=== PATIENT | female | born 1945 | race Hispanic/Latino ===

== ENCOUNTER → 2022-06-25 | Outpatient (CLI) | payer OTHER ==
[2022-06-25 12:35] LABS: ALBUMIN 3.7 g/dL (3.5-5.0); CREATININE 0.9 mg/dL (0.5-1.5); TOTAL PROTEIN, SERUM 7.2 g/dL (6.0-8.3)
== END | disposition home or self-care (01) ==
LOC: LAB 08:31
PROVIDERS: ATTEND Student in an Organized Health Care Education/Training Program
DX: I10 Essential (primary) hypertension (principal)
CPT/HCPCS: 36415; 80053

== ENCOUNTER → 2022-06-27 | Outpatient (CLI) | payer OTHER | END | disposition home or self-care (01) | LOC: RAH 13:04 | PROVIDERS: ATTEND Student in an Organized Health Care Education/Training Program | DX: I51.7 Cardiomegaly (principal); R07.9 Chest pain, unspecified | CPT/HCPCS: 93306 ==

== ENCOUNTER → 2022-08-21 | Outpatient (CLI) | payer OTHER ==
[2022-08-21 13:47] LABS: CREATININE 0.8 mg/dL (0.5-1.5); POTASSIUM 3.9 mmol/L (3.5-5.1)
== END | disposition home or self-care (01) ==
LOC: LAB 08:34
PROVIDERS: ATTEND Student in an Organized Health Care Education/Training Program
DX: I10 Essential (primary) hypertension (principal); R07.9 Chest pain, unspecified
CPT/HCPCS: 36415; 80048

== ENCOUNTER → 2022-09-16 | Outpatient (CLI) | payer OTHER ==
[~2022-09-16] MED LIST: IOHEXOL-350 50ML VIAL IV ONE; METOPROLOL TARTRATE 1 MG/ML 5ML VIAL IV ONE
== END | disposition home or self-care (01) ==
LOC: RAH 07:23
PROVIDERS: ATTEND Student in an Organized Health Care Education/Training Program
DX: I10 Essential (primary) hypertension (principal); R07.9 Chest pain, unspecified
CPT/HCPCS: 75574; J3490 ×2; Q9967

== ENCOUNTER → 2023-06-24 | Outpatient (CLI) | payer OTHER | END | disposition home or self-care (01) | LOC: RAH 10:20 | PROVIDERS: ATTEND Internal Medicine | DX: R10.2 Pelvic and perineal pain (principal); Z90.710 Acquired absence of both cervix and uterus | CPT/HCPCS: 76856 ==

== ENCOUNTER → 2023-09-02 | Outpatient (CLI) | payer OTHER | END | disposition home or self-care (01) | LOC: SHCH 08:12 | PROVIDERS: ATTEND Student in an Organized Health Care Education/Training Program | DX: R07.9 Chest pain, unspecified (principal) | CPT/HCPCS: 93306 ==

== ENCOUNTER → 2025-05-25 | Outpatient (CLI) | payer OTHER ==
--- NOTE | 2025-05-30 11:14 | HMCIMG ---
EXAM: CT Abdomen and Pelvis without IV contrast CLINICAL HISTORY: General abdominal pain TECHNIQUE: Axial computed tomography images of the abdomen and pelvis without intravenous contrast. CONTRAST: No IV contrast. COMPARISON: None provided. FINDINGS: LUNG BASES: There is a 1.1 cm subpleural nodule in the medial basal segment of the left lower lobe (axial image 5/94). No pleural effusions are seen. LIVER: Unremarkable. GALLBLADDER AND BILE DUCTS: The gallbladder demonstrates a triple radiopaque gallstones without wall thickening or pericholecystic inflammation. No biliary ductal dilatation is evident. PANCREAS: Unremarkable. SPLEEN: Unremarkable. 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 KIDNEYS, URETERS, AND BLADDER: The kidneys demonstrate numerous bilateral parapelvic cysts, evaluation of which is limited on this non-intravenous contrast study. There is no hydroureter. No urinary calculi are seen. STOMACH AND BOWEL: There is a moderate hiatal hernia. No evidence of bowel obstruction. No evidence suggesting enteritis or colitis. There are multiple colonic diverticuli without acute diverticulitis. The distal colon is underdistended. APPENDIX: Unremarkable. PERITONEUM: No free fluid or free air. LYMPH NODES: No lymphadenopathy is evident. REPRODUCTIVE: Surgically absent. VASCULATURE: The aorta demonstrates atheromatous calcifications without aneurysm. BONES: No aggressive appearing osseous lesion. No acute osseous pathology evident. There is a transitional vertebra at S1 with a rudimentary disc at S1/2. SOFT TISSUE: There is a small fat containing umbilical hernia. Post-operative changes are noted in the lower ventral abdominal wall. IMPRESSION: No significant acute abnormality. Moderate hiatal hernia. Colonic diverticulosis without acute diverticulitis. Incidental cholelithiasis. Numerous parapelvic cysts of the kidneys. No acute process. 1.1 cm nodule in the medial basal segment of left lower lobe. A dedicated chest CT is recommended. /[place]
== END | disposition home or self-care (01) ==
LOC: RAH 10:33
PROVIDERS: ATTEND Internal Medicine
DX: K57.30 Diverticulosis of large intestine without perforation or abscess without bleeding (principal); K44.9 Diaphragmatic hernia without obstruction or gangrene; K80.20 Calculus of gallbladder without cholecystitis without obstruction; R10.84 Generalized abdominal pain; R10.20 Pelvic and perineal pain unspecified side; N28.1 Cyst of kidney, acquired; R91.1 Solitary pulmonary nodule; K42.9 Umbilical hernia without obstruction or gangrene
CPT/HCPCS: 74176

== ENCOUNTER → 2025-06-21 | Outpatient (CLI) | payer OTHER ==
[~2025-06-21] MED LIST changes: -METOPROLOL TARTRATE 1 MG/ML 5ML VIAL IV ONE
--- NOTE | 2025-06-23 13:15 | HMCIMG ---
EXAM: CT examination of the chest with intravenous contrast. CLINICAL HISTORY: Solitary pulmonary nodule. TECHNIQUE: Thin collimated axial CT images of the chest were obtained with sagittal and coronal reformatted images also submitted. CT scan is done according to ALARA (As Low as Reasonably Achievable). CONTRAST USED: 50 mL. Details not specified. COMPARISON: None provided. FINDINGS: Minimal bilateral posterior pleural thickening. Linear fibrotic band in bilateral lower lobes. Linear subsegmental atelectasis in the inferior lingular segment and anterior basal segment of left lower lobe. A lobulated 1.2 x 1.1 cm lesion from the medial aspect of the posterior basal segment of left lower lobe. No other lung nodules are identified. No pleural effusions. No pericardial effusion. Minimal pericardial thickening. The heart size is within normal limits. Scattered coronary artery calcifications. 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 No axillary, supraclavicular, or mediastinal lymphadenopathy. Benign-appearing calcification in the left breast superomedial aspect. No focal thyroid abnormality. Moderate hiatus hernia. Mild hepatomegaly with fatty infiltration of liver. The gallbladder demonstrates a few large calculi in the gallbladder body. A right renal parapelvic cyst is identified. Hyperplasia of the bilateral adrenal glands is more prominent on the left than on the right. No acute or suspicious osseous abnormality. IMPRESSION: Minimal bilateral posterior pleural thickening. Linear fibrotic band in bilateral lower lobes. Linear subsegmental atelectasis in the inferior lingular segment and anterior basal segment of left lower lobe. Lobulated 1.2 x 1.1 cm lesion from the medial aspect of the posterior basal segment of left lower lobe. No other lung nodules are identified. LUNG RADS 4B: Suggest a short-term follow-up after 3 months or a PET scan correlation. Minimal anterior pericardial thickening. No pericardial effusion. Scattered coronary artery calcifications. 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 Moderate hiatus hernia. Fatty infiltration of liver. Cholelithiasis without evidence of cholecystitis. Hyperplasia of the bilateral adrenal glands is more prominent on the left than on the right. /[place]
== END | disposition home or self-care (01) ==
LOC: RAH 13:34
PROVIDERS: ATTEND Internal Medicine
DX: J98.11 Atelectasis (principal); I25.10 Atherosclerotic heart disease of native coronary artery without angina pectoris; I70.0 Atherosclerosis of aorta; K44.9 Diaphragmatic hernia without obstruction or gangrene; R91.1 Solitary pulmonary nodule; K80.20 Calculus of gallbladder without cholecystitis without obstruction; K76.0 Fatty (change of) liver, not elsewhere classified; N28.1 Cyst of kidney, acquired; R16.0 Hepatomegaly, not elsewhere classified
CPT/HCPCS: 71270; Q9967

== ENCOUNTER → 2025-07-03 | Outpatient (CLI) | payer OTHER ==
[~2025-07-03] MED LIST changes: +GADOTERATE MEGLUMINE 10 MMOL/20 ML VIAL IV ONE; -IOHEXOL-350 50ML VIAL IV ONE
--- NOTE | 2025-07-03 20:30 | HMCIMG ---
STUDY: MRI abdomen with and without IV contrast (15 cc Clariscan). 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 TECHNIQUE: Multiplanar, multisequence MRI of the abdomen was obtained before and after intravenous contrast administration (15 cc Clariscan). Dynamic multiphase postcontrast LAVA sequences and MRCP sequences were performed. COMPARISON: CT abdomen/pelvis without contrast dated 05/25/2025. FINDINGS: Lower Thorax: No pleural effusion. Liver: Normal hepatic morphology and signal. No focal lesion. Gallbladder and Bile Ducts: Gallbladder is moderately distended containing: ??? Three large calculi, the largest measuring 2.2 cm. ??? Multiple small calculi, approximately 20???30, measuring 4???5 mm. Gallbladder wall thickness normal. No pericholecystic fat stranding. CBD measures 0.4 cm with smooth tapering at the ampullary end. No intraductal filling defect. Pancreas: Normal signal and enhancement. No ductal dilation. Spleen: Normal size and signal. Adrenal Glands: Left adrenal nodule measuring 3.2 ??? 2.0 cm demonstrating no diffusion restriction and no aggressive features. Right adrenal unremarkable. Kidneys: Numerous bilateral parapelvic renal cysts. Associated perinephric fat stranding bilaterally. No hydronephrosis or renal mass. Stomach and Bowel: Hiatal hernia measuring 4.5 ??? 3.7 cm. No acute bowel abnormality. Lymph Nodes: No lymphadenopathy. Vasculature: Aorta and branch vessels normal in caliber. Reproductive Organs and Bladder: Unremarkable as visualized. Bones / Soft Tissues: Lumbar dextroscoliosis (<12???). No acute osseous abnormality. IMPRESSION: * Left adrenal nodule (3.2 ??? 2.0 cm) without diffusion restriction or suspicious signal characteristics. * Cholelithiasis with mixed-size calculi: three large gallstones (largest 2.2 cm) and numerous small (4???5 mm) calculi within a moderately distended gallbladder; gallbladder wall thickness normal with no pericholecystic inflammation. * Bilateral parapelvic renal cysts with associated perinephric fat stranding. * Hiatal hernia measuring 4.5 ??? 3.7 cm.Lumbar dextroscoliosis (<12???). * Comparison with CT from 05/25/2025: findings of moderate hiatal hernia, colonic diverticulosis, incidental cholelithiasis, and pelvic cysts are again demonstrated; current study shows more detailed characterization of gallbladder calculi but no adverse interval change. /[place]
== END | disposition home or self-care (01) ==
LOC: RAH 10:03
PROVIDERS: ATTEND Internal Medicine
DX: K80.20 Calculus of gallbladder without cholecystitis without obstruction (principal); D35.02 Benign neoplasm of left adrenal gland; N28.1 Cyst of kidney, acquired; K57.30 Diverticulosis of large intestine without perforation or abscess without bleeding; M41.86 Other forms of scoliosis, lumbar region; K44.9 Diaphragmatic hernia without obstruction or gangrene
CPT/HCPCS: 74183; A9575